=== PATIENT | female | born 1995 | race American Indian/Alaskan Native ===

== ENCOUNTER 2020-03-28 16:03 | Emergency (ER) | payer SELFPAY ==
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
--- NOTE | 2020-03-28 16:56 | XRay Report ---
LEFT FOOT 3 VIEWS INDICATION / CLINICAL INFORMATION: left foot pain after inversion injury. COMPARISON: None available. FINDINGS: No significant skeletal abnormality Signer Name: Jad Noel MD FACR Signed: 03/28/2020 4:52 PM Workstation Name: [id number]
[2020-03-28 18:10] VITALS: BP 134/85
== END 2020-03-28 18:12 | disposition home or self-care (01) ==
LOC: ED 16:03
DX: S93.602A Unspecified sprain of left foot, initial encounter (principal); Z79.899 Other long term (current) drug therapy; W01.0XXA Fall on same level from slipping, tripping and stumbling without subsequent striking against object, initial encounter; Y93.89 Activity, other specified; Y92.89 Other specified places as the place of occurrence of the external cause; Y99.8 Other external cause status

== ENCOUNTER 2021-03-07 01:02 | Emergency (ER) | payer OTHER ==
[2021-03-07 01:24] VITALS: BP 125/78
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
== END 2021-03-07 02:14 | disposition home or self-care (01) ==
LOC: ED 01:02
DX: M79.18 Myalgia, other site (principal); Z79.899 Other long term (current) drug therapy; V89.2XXA Person injured in unspecified motor-vehicle accident, traffic, initial encounter; Y93.89 Activity, other specified; Y92.488 Other paved roadways as the place of occurrence of the external cause; Y99.8 Other external cause status
CPT/HCPCS: 99282